=== PATIENT | female | born 1960 | race Caucasian/White ===

== ENCOUNTER 2016-04-06 05:58 | Day surgery (SDC) | payer OTHER ==
[~2016-04-06] VITALS: Ht 165.1 cm; Wt 91.2 kg
[2016-04-06] MEDS ORDERED: TENORMIN50 M1 PO (07:38)
[2016-04-06] MEDS ORDERED: GLUCOPHAGE500 MG PO (07:38)
[2016-04-06] MEDS ORDERED: CHLORTHALIDONE25 M1 PO (07:40)
[2016-04-06] MEDS ORDERED: CYCLOBENZAPRINE5 MG PO (07:41)
[2016-04-06] MEDS ORDERED: LIDOCAINE 2% 100 MG/5 ML UJET TP ONE (07:45)
[2016-04-06] MEDS ORDERED: CYMBALTA60 MG PO (07:47)
[2016-04-06] MEDS ORDERED: fentaNYL 0.05 MG/ML VIAL ONE (08:24)
== END 2016-04-06 09:15 | disposition home or self-care (01) ==
LOC: MDS 05:58 → MMU 06:03 → MDS 09:15
PROVIDERS: ATTEND Internal Medicine Gastroenterology
DX: K57.30 Diverticulosis of large intestine without perforation or abscess without bleeding (principal); I10 Essential (primary) hypertension; E78.5 Hyperlipidemia, unspecified; E11.9 Type 2 diabetes mellitus without complications; E03.9 Hypothyroidism, unspecified; M19.90 Unspecified osteoarthritis, unspecified site; M79.7 Fibromyalgia; Z90.49 Acquired absence of other specified parts of digestive tract; Z98.890 Other specified postprocedural states; F41.9 Anxiety disorder, unspecified; F32.9 Major depressive disorder, single episode, unspecified
CPT/HCPCS: 45378; 82948; J3010